=== PATIENT | female | born 1945 | race Caucasian/White ===

== ENCOUNTER → 2016-05-10 | Outpatient (CLI) | payer OTHER ==
[~2016-05-10] MED LIST: BUPIVACAINE 0.25% 30 ML SDV ONE; DEPO METHYLPREDNISOLONE 40 MG/ML SDV ONE; DEPO METHYLPREDNISOLONE 80 MG/ML SDV ONE; LIDOCAINE 1% 30 ML SDV ONE; NA BICARBONATE 50 MEQ/50 ML VIAL ONE
--- NOTE | 2016-05-10 14:43 | US ---
Ultrasound-guided Cortical Steroid Injection Right Gluteus Tendon History: Pain overlying the right greater trochanter. History of right total hip arthroplasty. Increa sing pain after improvement of pain after injection of the rectus femoris tendon origin at the anteri or/inferior iliac spine. Informed consent: Informed written and oral consent was obtained. Crosscutting measure number 226, nonsmoker. Technique: Ultrasound was performed of the lateral right hip. The right greater trochanter is visuali zed and the gluteus tendon insertion of the right greater trochanter. After the usual sterile prepara tion and local anesthetic with lidocaine 1%, a 25-gauge needle was directed toward the gluteus tendon insertion to the greater trochanter. The needle tip was placed superficial to the gluteus tendon ins ertion and soft tissue plane dissection with lidocaine 1%. This ensured needle tip placement superfic ial to the gluteus tendon insertion. Subsequently, 1 mL of Depo-Medrol (40 mg) was then placed superf icial to the gluteus tendon. The needle was removed and the patient tolerated the procedure well. The patient was given the usual postprocedural care and instructions. Impression: Successful uneventful ultrasound-guided corticosteroid injection superficial to the glute us tendon insertion of the right greater trochanter.
== END ==
LOC: FIMAGING 12:25
PROVIDERS: ATTEND Physician Assistant
PROC: 3E0233Z Introduction of Anti-inflammatory into Muscle, Percutaneous Approach (ICD-10-PCS; principal; 2016-05-10)
DX: M25.551 Pain in right hip (principal); Z96.641 Presence of right artificial hip joint
CPT/HCPCS: 20550; 76942; J1020

== ENCOUNTER → 2016-09-11 | Outpatient (CLI) | payer OTHER ==
[~2016-09-11] MED LIST changes: -DEPO METHYLPREDNISOLONE 40 MG/ML SDV ONE; -DEPO METHYLPREDNISOLONE 80 MG/ML SDV ONE
== END ==
LOC: FIMAGING 07:59
PROVIDERS: ATTEND Physician Assistant
PROC: 3E023GC Introduction of Other Therapeutic Substance into Muscle, Percutaneous Approach (ICD-10-PCS; principal; 2016-09-11)
DX: M25.551 Pain in right hip (principal); M62.89 Other specified disorders of muscle

== ENCOUNTER → 2016-12-17 | Outpatient (CLI) | payer OTHER | LOC: BMCIMAGING 14:16 | PROVIDERS: ATTEND Podiatrist Foot & Ankle Surgery | DX: M25.775 Osteophyte, left foot (principal); M25.872 Other specified joint disorders, left ankle and foot ==

== ENCOUNTER → 2017-04-10 | Outpatient (CLI) | payer OTHER ==
[~2017-04-10] MED LIST changes: -LIDOCAINE 1% 30 ML SDV ONE; +LIDOCAINE 1% 300 MG/30 ML SDV ONE; -NA BICARBONATE 50 MEQ/50 ML VIAL ONE
== END ==
LOC: FIMAGING 07:50
PROVIDERS: ATTEND Orthopaedic Surgery
PROC: 3E023GC Introduction of Other Therapeutic Substance into Muscle, Percutaneous Approach (ICD-10-PCS; principal; 2017-04-10)
PROC: 3E023NZ Introduction of Analgesics, Hypnotics, Sedatives into Muscle, Percutaneous Approach (ICD-10-PCS; principal; 2017-04-10)
DX: M70.61 Trochanteric bursitis, right hip (principal); M25.551 Pain in right hip

== ENCOUNTER → 2017-08-21 | Outpatient (CLI) | payer OTHER | LOC: BMCIMAGING 14:44 | PROVIDERS: ATTEND Podiatrist Foot & Ankle Surgery | DX: M25.872 Other specified joint disorders, left ankle and foot (principal); Z98.890 Other specified postprocedural states ==

== ENCOUNTER → 2017-10-28 | Outpatient (CLI) | payer OTHER | LOC: BMCIMAGING 08:09 | PROVIDERS: ATTEND Nurse Practitioner Adult Health | DX: M50.31 Other cervical disc degeneration, high cervical region (principal); M50.321 Other cervical disc degeneration at C4-C5 level; M50.322 Other cervical disc degeneration at C5-C6 level; M50.323 Other cervical disc degeneration at C6-C7 level; M50.33 Other cervical disc degeneration, cervicothoracic region; M99.71 Connective tissue and disc stenosis of intervertebral foramina of cervical region ==